=== PATIENT | female | born 1995 | race Caucasian/White ===

== ENCOUNTER 2019-03-04 22:17 | Emergency (ER) | payer MEDICAID ==
--- NOTE | 2019-03-04 22:33 | ERPHSYRPT ---
- History of Present Illness Time Seen by Provider: 03/04/19 22:20 Source: patient Exam Limitations: no limitations (23-year-old female here for a test. The patient denies any symptoms. Last menstrual period was months ago tested positive at home. Needs official diagnosis to get her insurance approved) Allergies/Adverse Reactions: No Known Drug Allergies Allergy (Unverified 03/04/19 22:42) Home Medications: No Reportable Medications [No Reported Medications] 03/04/19 [History] - Review of Systems Constitutional: No Symptoms Eyes: No Symptoms Ears, Nose, & Throat: No Symptoms Respiratory: No Symptoms Cardiac: No Symptoms Abdominal/Gastrointestinal: No Symptoms Genitourinary Symptoms: No Symptoms Musculoskeletal: No Symptoms Skin: No Symptoms Neurological: No Symptoms - Past Medical History Pertinent Past Medical History: Yes Neurological History: No Pertinent History Respiratory History: Asthma GI Medical History: No Pertinent History Psycho-Social History: Depression Female Reproductive Disorders: No Pertinent History - Past Surgical History Past Surgical History: Yes Neuro Surgical History: No Pertinent History Cardiac: No Pertinent History Other Surgical History: tonsils - Social History Smoking Status: Never smoker Exposure to second hand smoke: Yes Drug Use: none Patient Lives Alone: No - Nursing Vital Signs Nursing Vital Signs: Initial Vital Signs Temperature 98.4 F 03/04/19 22:31 Pulse Rate 84 03/04/19 22:31 Respiratory Rate 14 03/04/19 22:31 Blood Pressure 119/58 03/04/19 22:31 O2 Sat by Pulse Oximetry 98 03/04/19 22:31 Pain Scale Pain Intensity 0 - Physical Exam General Appearance: no apparent distress, obese Respiratory Exam: normal breath sounds Cardiovascular Exam: regular rate/rhythm Gastrointestinal/Abdomen Exam: soft, normal bowel sounds Neurologic Exam: alert, oriented x 3, cooperative Ordered Tests: Active Orders 24 hr Category Date Time Status HCG,QUALITATIVE URINE Stat Lab 03/04/19 22:48 Completed Lab/Rad Data: Laboratory Results 03/04/19 Range/Units 22:48 Urine HCG, Qual POSITIVE (Negative) - Progress Progress: unchanged Counseled pt/family regarding: lab results (pt has positive preg test. advised to fu with obgyn in 1 weeks time. pt voiced understanding. no smoking, alcohol. take pnv's), diagnosis - Departure Departure Disposition: Home Clinical Impression: confirmed by positive urine test Condition: Stable Critical Care Time: No
[2019-03-04 22:40] VITALS: BP 119/58; PULSE 84; O2SAT 98
== END 2019-03-04 23:15 | disposition home or self-care (01) ==
LOC: ED 22:17
DX: Z32.01 Encounter for pregnancy test, result positive (principal)
CPT/HCPCS: 84703; 99283

== ENCOUNTER 2019-04-03 22:20 | Emergency (ER) | payer MEDICAID ==
[2019-04-03] MEDS ORDERED: BENADRYL 50 MG/ML IV ONE (23:04)
[2019-04-03] MEDS ORDERED: Sodium Chloride 0.9% 1000 ML 1,000 ML IV STA (23:04)
[2019-04-03] MEDS ORDERED: TYLENOL EXTRA STRENGTH 500 MG PO STA (23:05)
--- NOTE | 2019-04-03 23:07 | ERPHSYRPT ---
- History of Present Illness Time Seen by Provider: 04/03/19 22:55 Historian: patient Exam Limitations: no limitations Patient Subjective Stated Complaint: PT STATES SHE IS 10 WEEKS ANG HAVING LOWER ABDOMINAL PAIN BILAT. PT RATES PAIN 8/10. PT STATES SHE IS NOT HAVING ANY BLEEDING, BUT STATES SHE HAS VOMITED ONCE TODAY, Triage Nursing Assessment: PT ALERT AND ORIENTED, VITALS WNL. Physician History: Patient is a at 10 weeks with a confirmed intrauterine on ultrasound who presents with one day of intermittent lower abdominal pain that began yesterday on the left side, then today began bilaterally in the lower abdomen. Patient sees Dr Anderson for her OB care. Timing/Duration: yesterday Activities at Onset: none Quality: sharpness Abdominal Pain Onset Location: RLQ, LLQ (pain began on 04/02/2019 on the left lowe quadrant; today it has been both right and left lower quadrant) Pain Radiation: no radiation Severity of Pain-Max: moderate Severity of Pain-Current: mild Modifying Factors: Improves With: nothing Associated Symptoms: nausea, vomiting (times one today), No back, No chest pain , No diaphoresis, No diarrhea, No fever/chills, No fatigue, No headache, No heartburn, No loss of appetite, No neck pain, No rash, No shortness of breath, No syncope, No weakness Previous symptoms: no prior history, no recent treatment Allergies/Adverse Reactions: No Known Drug Allergies Allergy (Verified 04/03/19 22:43) Home Medications: Vits W-Ca,Fe,FA(<1Mg) [] 1 tablet PO DAILY 04/03/19 [History] Hx Tetanus, Diphtheria Vaccination/Date Given: Yes Hx Influenza Vaccination/Date Given: No Hx Pneumococcal Vaccination/Date Given: Yes - Review of Systems Constitutional: No Fever, No Chills, No Fatigue Eyes: No Eye Pain, No Vision Changes Ears, Nose, & Throat: No Ear Pain, No Ear Discharge, No Throat Pain, No Painful Swallowing Respiratory: No Cough, No Dyspnea Cardiac: No Chest Pain, No Palpitations Abdominal/Gastrointestinal: Abdominal Pain, Nausea, Vomiting, No Diarrhea, No Constipation, No Hematemesis, No Hematochezia, No Melena Genitourinary Symptoms: , No Dysuria, No Frequency, No Hematuria, No Urgency, No Urinary Retention, No Flank Pain, No Vaginal Bleeding, No Vaginal Discharge, No Vaginal Itching Musculoskeletal: No Arthralgias, No Back Pain, No Neck Pain Skin: No Pruritis, No Rash Neurological: No Focal Weakness, No Lethargy, No Parasthesia, No Sensory Changes , No Tremors Psychological: No Anxiety, No Emotional Lability Endocrine: No Polydipsia, No Excessive Sweating Hematologic/Lymphatic: No Easy Bleeding, No Easy Bruising All Other Systems: Reviewed and Negative - Past Medical History Pertinent Past Medical History: Yes Neurological History: No Pertinent History Respiratory History: Asthma GI Medical History: No Pertinent History Psycho-Social History: Depression Female Reproductive Disorders: No Pertinent History - Past Surgical History Past Surgical History: Yes Neuro Surgical History: No Pertinent History Cardiac: No Pertinent History Other Surgical History: tonsils - Social History Smoking Status: Current some day smoker How long have you smoked: 5 YEARS Exposure to second hand smoke: No Drug Use: none Patient Lives Alone: No - Female History Hx Last Menstrual Period: JANUARY 31 Hx Now: Yes Expected Date of Delivery: 11/01/18 - Nursing Vital Signs Nursing Vital Signs: Initial Vital Signs Temperature 98.1 F 04/03/19 22:31 Pulse Rate 99 H 04/03/19 22:31 Respiratory Rate 18 04/03/19 22:31 O2 Sat by Pulse Oximetry 99 04/03/19 22:31 Pain Scale Pain Intensity 6 - Physical Exam General Appearance: no apparent distress Eye Exam: PERRL/EOMI, eyes nml inspection, No scleral icterus, No pale conjunctivae Ears, Nose, Throat Exam: normal ENT inspection, TMs normal, pharynx normal, moist mucous membranes, No TM abnormal (R), No TM abnormal (L) Neck Exam: normal inspection, non-tender, supple, full range of motion, No meningismus, No Brudzinski, No limited range of motion, No lymphadenopathy, No midline tenderness Respiratory Exam: normal breath sounds, lungs clear, airway intact, No chest tenderness, No respiratory distress, No diminished breath sounds, No accessory muscle use, No crackles/rales, No rhonchi, No wheezing, No stridor Cardiovascular Exam: regular rate/rhythm, normal heart sounds, normal peripheral pulses, capillary refill <2 sec, No murmur Gastrointestinal/Abdomen Exam: soft, normal bowel sounds, No tenderness, No distention, No mass, No guarding, No ecchymosis, No pulsatile mass, No rebound Back Exam: normal inspection, No CVA tenderness, No vertebral tenderness, No rash Extremity Exam: normal inspection, normal range of motion, pelvis stable, No calf tenderness, No petr's sign, No inflammation, No pedal edema, No swelling Neurologic Exam: alert, oriented x 3, cooperative, climatology professor II-XII nml as tested, normal mood/affect, sensation nml, No motor deficits, No motor weakness, No facial droop Skin Exam: normal color, warm, dry, No rash, No petechiae, No jaundice, No cyanosis SpO2 Interpretation: normal SpO2: 99 O2 Delivery: Room Air - Course Nursing assessment & vital signs reviewed: Yes - Radiology Ultrasound Exam OB Ultrasound: Other (Performed on 03/23/2019: Single live intrauterine ) Ordered Tests: Active Orders 24 hr Category Date Time Status Heart Tones-ED STAT Care 04/03/19 23:21 Active IV Insertion STAT Care 04/03/19 23:04 Active NPO (ED) STAT Care 04/03/19 23:04 Active AMYLASE Stat Lab 04/03/19 23:53 Completed CBC W DIFF Stat Lab 04/03/19 23:04 Completed CMP Stat Lab 04/03/19 23:53 Completed CULTURE,URINE Stat Lab 04/04/19 01:18 Received LIPASE Stat Lab 04/03/19 23:53 Completed Lactic Acid Stat Lab 04/03/19 23:55 Results UA W/RFX UR CULTURE Stat Lab 04/04/19 01:18 Completed Medication Summary Generic Name Dose Route Start Last Admin Trade Name Freq PRN Reason Stop Dose Admin Cephalexin HCl 500 mg 04/04/19 01:39 Keflex 500 Mg PO 04/04/19 01:40 STAT ONE Discontinued Medications Generic Name Dose Route Start Last Admin Trade Name Freq PRN Reason Stop Dose Admin Acetaminophen 1,000 mg 04/03/19 23:05 04/03/19 23:24 Tylenol Extra Strength 500 Mg PO 04/03/19 23:06 1,000 mg STAT STA Administration Acetaminophen Confirm 04/03/19 23:19 Tylenol Extra Strength 500 Mg Administered 04/03/19 23:20 Dose 1,000 mg .ROUTE .STK-MED ONE Diphenhydramine HCl 25 mg 04/03/19 23:04 04/03/19 23:23 Benadryl 50 Mg/Ml IV 04/03/19 23:05 25 mg STAT ONE Administration Diphenhydramine HCl Confirm 04/03/19 23:19 Benadryl 50 Mg/Ml Administered 04/03/19 23:20 Dose 50 mg .ROUTE .STK-MED ONE Sodium Chloride 1,000 mls @ 999 mls/hr 04/03/19 23:04 04/03/19 23:23 Sodium Chloride 0.9% 1000 Ml IV 04/04/19 00:04 999 mls/hr .Q1H1M STA Administration Sodium Chloride Confirm 04/03/19 23:19 Sodium Chloride 0.9% 1000 Ml Administered 04/03/19 23:20 Dose 1,000 mls @ ud .ROUTE .STK-MED ONE Potassium Chloride 40 meq 04/04/19 00:18 04/04/19 00:36 Klor Con 10 Meq PO 04/04/19 00:19 40 meq STAT ONE Administration Potassium Chloride Confirm 04/04/19 00:36 Klor Con 10 Meq Administered 04/04/19 00:37 Dose 40 meq PO .STK-MED ONE Lab/Rad Data: Laboratory Result Diagrams 04/03/19 23:04 04/03/19 23:53 Laboratory Results 04/04/19 04/03/19 04/03/19 Range/Units 01:18 23:55 23:53 WBC (4.0-10.5) K/mm3 RBC (4.1-5.4) M/mm3 Hgb (12.0-16.0) gm/dl Hct (35-47) % MCV (78-100) fl MCH (26-32) pg MCHC (32-36) g/dl RDW (11.5-14.0) % Plt Count (150-450) K/mm3 MPV (6-9.5) fl Gran % (36.0-66.0) % Eos # (Auto) (0-0.5) Absolute Lymphs (auto) (1.0-4.6) Absolute Monos (auto) (0.0-1.3) Lymphocytes % (24.0-44.0) % Monocytes % (0.0-12.0) % Eosinophils % (0.00-5.0) % Basophils % (0.0-0.4) % Absolute Granulocytes (1.4-6.9) Basophils # (0-0.4) Sodium 139 (137-145) mmol/L Potassium 3.4 L (3.5-5.1) mmol/L Chloride 105 (98-107) mmol/L Carbon Dioxide 23 (22-30) mmol/L Anion Gap 14.6 (5-15) MEQ/L BUN 11 (7-17) mg/dL Creatinine 0.49 L (0.52-1.04) mg/dL Estimated GFR > 60.0 ML/MIN Glucose 105 (74-106) mg/dL Lactic Acid 2.0 (0.4-2.0) Calcium 9.3 (8.4-10.2) mg/dL Total Bilirubin 0.30 (0.2-1.3) mg/dL AST 30 (14-36) U/L ALT 33 (0-35) U/L Alkaline Phosphatase 66 (38-126) U/L Serum Total Protein 7.1 (6.3-8.2) g/dL Albumin 3.9 (3.5-5.0) g/dL Amylase 69 (30-110) U/L Lipase 105 (23-300) U/L Urine Color YELLOW (YELLOW) Urine Appearance CLOUDY (CLEAR) Urine pH 6.0 (5-6) Ur Specific [place] 1.029 (1.005-1.025) Urine Protein 30 (Negative) Urine Ketones SMALL (NEGATIVE) Urine Blood NEGATIVE (0-5) Cong/ul Urine Nitrite NEGATIVE (NEGATIVE) Urine Bilirubin NEGATIVE (NEGATIVE) Urine Urobilinogen NEGATIVE (0-1) mg/dL Ur Leukocyte Esterase MODERATE (NEGATIVE) Urine WBC (Auto) 51-100 (0-5) /HPF Urine RBC (Auto) 6-10 (0-2) /HPF U Epithel Cells (Auto) RARE (FEW) /HPF Urine Bacteria (Auto) NONE (NEGATIVE) /HPF Urine Mucus (Auto) SLIGHT (NEGATIVE) /HPF Urine Culture Reflexed YES (NO) Urine Glucose NEGATIVE (NEGATIVE) mg/dL 04/03/19 Range/Units 23:04 WBC 14.0 H (4.0-10.5) K/mm3 RBC 4.01 L (4.1-5.4) M/mm3 Hgb 11.9 L (12.0-16.0) gm/dl Hct 36.0 (35-47) % MCV 89.8 (78-100) fl MCH 29.6 (26-32) pg MCHC 33.1 (32-36) g/dl RDW 13.9 (11.5-14.0) % Plt Count 220 (150-450) K/mm3 MPV 10.3 H (6-9.5) fl Gran % 76.3 H (36.0-66.0) % Eos # (Auto) 0.13 (0-0.5) Absolute Lymphs (auto) 2.46 (1.0-4.6) Absolute Monos (auto) 0.71 (0.0-1.3) Lymphocytes % 17.6 L (24.0-44.0) % Monocytes % 5.1 (0.0-12.0) % Eosinophils % 0.9 (0.00-5.0) % Basophils % 0.1 (0.0-0.4) % Absolute Granulocytes 10.64 H (1.4-6.9) Basophils # 0.02 (0-0.4) Sodium (137-145) mmol/L Potassium (3.5-5.1) mmol/L Chloride (98-107) mmol/L Carbon Dioxide (22-30) mmol/L Anion Gap (5-15) MEQ/L BUN (7-17) mg/dL Creatinine (0.52-1.04) mg/dL Estimated GFR ML/MIN Glucose (74-106) mg/dL Lactic Acid (0.4-2.0) Calcium (8.4-10.2) mg/dL Total Bilirubin (0.2-1.3) mg/dL AST (14-36) U/L ALT (0-35) U/L Alkaline Phosphatase (38-126) U/L Serum Total Protein (6.3-8.2) g/dL Albumin (3.5-5.0) g/dL Amylase (30-110) U/L Lipase (23-300) U/L Urine Color (YELLOW) Urine Appearance (CLEAR) Urine pH (5-6) Ur Specific [place] (1.005-1.025) Urine Protein (Negative) Urine Ketones (NEGATIVE) Urine Blood (0-5) Cong/ul Urine Nitrite (NEGATIVE) Urine Bilirubin (NEGATIVE) Urine Urobilinogen (0-1) mg/dL Ur Leukocyte Esterase (NEGATIVE) Urine WBC (Auto) (0-5) /HPF Urine RBC (Auto) (0-2) /HPF U Epithel Cells (Auto) (FEW) /HPF Urine Bacteria (Auto) (NEGATIVE) /HPF Urine Mucus (Auto) (NEGATIVE) /HPF Urine Culture Reflexed (NO) Urine Glucose (NEGATIVE) mg/dL - Progress Progress: improved Progress Note: 04/04/19 00:49 Patient denies any nausea, abdominal pain, back pain or flank pain. Repeat examination shows no tenderness to abdomen in any quadrant with no CVA tenderness bilaterally. Patient denies any headache. 04/04/19 01:40 Patient is doing better and denies any pain in her abdomen or head. Counseled pt/family regarding: lab results, diagnosis, need for follow-up - Departure Departure Disposition: Home Clinical Impression: Acute bilateral lower abdominal pain, Acute cystitis during in first trimester Abdominal pain in Qualifiers: Trimester: first trimester Qualified Code(s): O26.891 - Other specified related conditions, first trimester Condition: Good Critical Care Time: No Referrals: ZEN MORROW MD [Primary Care Provider] - 04/04/19 LADI ANDERSON [ACTIVE STAFF] - 04/04/19 Instructions: Round Ligament Pain, Stomach Pain in Early , Urinary Tract Infections in Additional Instructions: Returned immediately back to the emergency room if you have any localized abdominal pain, worsening abdominal pain, new back pain, new fever, new vaginal discharge, any vaginal bleeding, and vaginal leakage of fluids, new abdominal pain, or any other concerning signs or symptoms that were not present at the age of return visit for immediate reevaluation in the emergency department. It is important to followup with your OB in the morning of 04/04/2019. Forms: Work/School Release Form Prescriptions: Cephalexin Mh 500 mg [Keflex 500 mg] 500 mg PO TID #15 capsule
[2019-04-03] MEDS ORDERED: BENADRYL 50 MG/ML ONE (23:19)
[2019-04-03] MEDS ORDERED: Sodium Chloride 0.9% 1000 ML 1,000 ML ONE (23:19)
[2019-04-03] MEDS ORDERED: TYLENOL EXTRA STRENGTH 500 MG ONE (23:19)
[2019-04-03 23:52] LABS: Absolute Neutrophil Ct (ANC) 10.64 (1.4-6.9); BASOPHIL % 0.1 % (0.0-0.4); Basophil (Absolute #) 0.02 (0-0.4); Eosinophil % 0.9 % (0.00-5.0); Eosinophil (Absolute #) 0.13 (0-0.5); Hemoglobin 11.9 gm/dl (12.0-16.0); Lymphocyte (Absolute #) 2.46 (1.0-4.6); Lymphocytes % 17.6 % (24.0-44.0); Mean Cell Volume 89.8 fl (78-100); Mean Corpuscular Hgb Concent. 33.1 g/dl (32-36); Mean Platelet Volume 10.3 fl (6-9.5); Monocyte (Absolute #) 0.71 (0.0-1.3); Monocytes % 5.1 % (0.0-12.0); Neutrophil % 76.3 % (36.0-66.0); Platelet Count 220 K/mm3 (150-450); Red Blood Count 4.01 M/mm3 (4.1-5.4); Red Cell Distribution Width 13.9 % (11.5-14.0)
[2019-04-03 23:53] LABS: Mean Corpuscular Hemoglobin 29.6 pg (26-32)
[2019-04-04 00:05] LABS: ALBUMIN 3.9 g/dL (3.5-5.0); ALKALINE PHOSPHATASE 66 U/L (38-126); AMYLASE 69 U/L (30-110); ANION GAP 14.6 MEQ/L (5-15); BLOOD UREA NITROGEN 11 mg/dL (7-17); CHLORIDE 105 mmol/L (98-107); Calcium 9.3 mg/dL (8.4-10.2); Carbon Dioxide 23 mmol/L (22-30); Creatinine 1 0.49 mg/dL (0.52-1.04); Glucose 105 mg/dL (74-106); LIPASE 105 U/L (23-300); Potassium 3.4 mmol/L (3.5-5.1); SGOT/AST 30 U/L (14-36); SGPT/ALT 33 U/L (0-35); SODIUM 139 mmol/L (137-145); Total Protein 7.1 g/dL (6.3-8.2)
[2019-04-04] MEDS ORDERED: Klor Con 10 MEQ PO ONE ×2 (00:18→00:36)
[2019-04-04 00:55] VITALS: O2SAT 99
[2019-04-04 01:31] LABS: Appearance CLOUDY (CLEAR); Bilirubin NEGATIVE (NEGATIVE); Blood NEGATIVE Ery/ul (0-5); Epithelial Cells RARE /HPF (FEW); Glucose NEGATIVE (NEGATIVE); Ketones SMALL (NEGATIVE); Leukocyte Esterase MODERATE (NEGATIVE); Mucus SLIGHT /HPF (NEGATIVE); Nitrite NEGATIVE (NEGATIVE); Protein,Urine Dip 30 (Negative); Specific Gravity 1.029 (1.005-1.025); Urobilinogen NEGATIVE mg/dL (0-1); WBC 51-100 /HPF (0-5)
[2019-04-04] MEDS ORDERED: KEFLEX 500 MG PO ONE (01:39)
[2019-04-04] MEDS ORDERED: KEFLEX 500 MG ONE (01:58)
[2019-04-04 02:14] VITALS: BP 104/59; PULSE 91
== END 2019-04-04 02:10 | disposition home or self-care (01) ==
LOC: ED 22:20
DX: O26.892 Other specified pregnancy related conditions, second trimester (principal); R10.32 Left lower quadrant pain; R10.31 Right lower quadrant pain; O23.11 Infections of bladder in pregnancy, first trimester; N30.00 Acute cystitis without hematuria
CPT/HCPCS: 36000; 36415; 80053; 81001; 82150; 83605; 83690; 85025; 87086; 96374; 99284; J1200; A9270-GY

== ENCOUNTER 2019-10-29 12:25 | Observation (INO) | payer OTHER ==
[2019-10-29 13:51] LABS: Appearance CLOUDY (CLEAR); Bacteria MANY /HPF (NEGATIVE); Bilirubin NEGATIVE (NEGATIVE); Blood SMALL Ery/ul (0-5); Epithelial Cells MODERATE /HPF (FEW); Glucose NEGATIVE (NEGATIVE); Ketones NEGATIVE (NEGATIVE); Leukocyte Esterase LARGE (NEGATIVE); Mucus SLIGHT /HPF (NEGATIVE); Nitrite NEGATIVE (NEGATIVE); Non-Squamous Epithelial Cells RARE /HPF (FEW); Protein,Urine Dip 100 (Negative); RBC 26-50 /HPF (0-2); Specific Gravity 1.012 (1.005-1.025); Urobilinogen NEGATIVE mg/dL (0-1); WBC 51-100 /HPF (0-5)
[2019-10-29 16:45] VITALS: BP 129/76; PULSE 92; O2SAT 98
[2019-10-29 17:10] LABS: Amphetamine,Urine NEGATIVE (NEGATIVE); Barbiturate,Urine NEGATIVE (NEGATIVE); Benzodiazepine,Urine NEGATIVE (NEGATIVE); Cocaine,Urine NEGATIVE (NEGATIVE); Methadone,Urine NEGATIVE (NEGATIVE); Opiate,Urine NEGATIVE (NEGATIVE); PCP,Urine NEGATIVE (NEGATIVE); THC,Urine NEGATIVE (NEGATIVE)
== END 2019-10-29 16:30 | disposition home or self-care (01) ==
LOC: OB 12:25
PROVIDERS: ADMIT Obstetrics & Gynecology; ATTEND Obstetrics & Gynecology
DX: Z34.03 Encounter for supervision of normal first pregnancy, third trimester (principal)
CPT/HCPCS: 80307; 81001; 87086; G0378

== ENCOUNTER 2019-11-01 10:24 | Inpatient (IN) | payer OTHER ==
[2019-11-01] MEDS ORDERED: PHARMACY DOSING REQUIRED: VANCOMYCIN IV ONE (11:27)
[2019-11-01] MEDS ORDERED: VANCOCIN IV SCH (12:00)
[2019-11-01] MEDS ORDERED: SODIUM CHLORIDE 0.9% IV SCH (12:00)
[2019-11-01] MEDS: VANCOMYCIN 2 GRAM/400 ML BAG 2 GM/400 ML PIGGYBACK IV SCH ×2 (12:18→19:35)
[2019-11-01] MEDS ORDERED: XYLOCAINE 1% HCL 20 ML MDV IJ PRN (13:17)
[2019-11-01] MEDS ORDERED: PITOCIN 30 UNITS/ LR 500 ML 500 ML IV SCH (13:30)
[2019-11-01 13:44] LABS: Absolute Neutrophil Ct (ANC) 9.09 (1.4-6.9); BASOPHIL % 0.1 % (0.0-0.4); Basophil (Absolute #) 0.01 (0-0.4); Eosinophil % 0.9 % (0.00-5.0); Hematocrit 34.7 % (35-47); Hemoglobin 11.3 gm/dl (12.0-16.0); Lymphocyte (Absolute #) 1.67 (1.0-4.6); Lymphocytes % 14.5 % (24.0-44.0); Mean Cell Volume 89.4 fl (78-100); Mean Corpuscular Hemoglobin 29.1 pg (26-32); Mean Corpuscular Hgb Concent. 32.6 g/dl (32-36); Mean Platelet Volume 11.5 fl (7.5-11.0); Monocyte (Absolute #) 0.63 (0.0-1.3); Monocytes % 5.5 % (0.0-12.0); Platelet Count 204 K/mm3 (150-450); Red Blood Count 3.88 M/mm3 (4.1-5.4); Red Cell Distribution Width 13.9 % (11.5-14.0); White Blood Count 11.5 K/mm3 (4.0-10.5)
[2019-11-01] MEDS ORDERED: Lactated Ringers 1,000 ML IV ONE (15:34)
[2019-11-01] MEDS ORDERED: OB EPIDURAL NAROPIN/SUFENTANIL IN NACL EPIDURAL PRN (15:34)
[2019-11-01] MEDS ORDERED: Ephedrine Sulfate 50 MG/ML IV PRN (15:34)
[2019-11-01] MEDS: Lactated Ringers 1,000 ML IV SCH (17:23)
[2019-11-01] MEDS ORDERED: Ambien 10 MG PO PRN (23:15)
[2019-11-01] MEDS ORDERED: TYLENOL EXTRA STRENGTH 500 MG PO PRN (23:15)
[2019-11-01] MEDS ORDERED: Mylicon 80MG PO PRN (23:15)
[2019-11-01] MEDS ORDERED: LANSINOH 40 GM TOP PRN (23:15)
[2019-11-01] MEDS ORDERED: NORCO 5/325 MG PO PRN (23:15)
[2019-11-01] MEDS ORDERED: CORTISONE 1% CREAM TP PRN (23:15)
[2019-11-01] MEDS: Dermoplast Spray TP PRN (23:28)
[2019-11-01] MEDS: TUCKS TP PRN (23:28)
[2019-11-02] MEDS: MOTRIN 400 MG PO PRN ×3 (01:18→21:09)
[2019-11-02] MEDS: VANCOMYCIN 2 GRAM/400 ML BAG 2 GM/400 ML PIGGYBACK IV SCH ×3 (03:55→22:30)
[2019-11-02] MEDS: Lactated Ringers 1,000 ML IV SCH (03:55)
[2019-11-02 05:16] LABS: Absolute Neutrophil Ct (ANC) 11.18 (1.4-6.9); BASOPHIL % 0.1 % (0.0-0.4); Basophil (Absolute #) 0.02 (0-0.4); Eosinophil % 0.2 % (0.00-5.0); Eosinophil (Absolute #) 0.03 (0-0.5); Hematocrit 30.9 % (35-47); Hemoglobin 10.1 gm/dl (12.0-16.0); Lymphocyte (Absolute #) 1.92 (1.0-4.6); Lymphocytes % 13.6 % (24.0-44.0); Mean Cell Volume 89.8 fl (78-100); Mean Corpuscular Hemoglobin 29.4 pg (26-32); Mean Corpuscular Hgb Concent. 32.7 g/dl (32-36); Mean Platelet Volume 11.2 fl (7.5-11.0); Monocyte (Absolute #) 0.96 (0.0-1.3); Monocytes % 6.8 % (0.0-12.0); Neutrophil % 79.3 % (36.0-66.0); Platelet Count 199 K/mm3 (150-450); Red Blood Count 3.44 M/mm3 (4.1-5.4); Red Cell Distribution Width 13.9 % (11.5-14.0); White Blood Count 14.1 K/mm3 (4.0-10.5)
[2019-11-02] MEDS ORDERED: Adacel Vial IM ONE (09:00)
[2019-11-02] MEDS: FERREX 150 PO SCH (10:41)
[2019-11-02] MEDS: Colace 100 MG PO SCH ×2 (10:41→21:09)
[2019-11-02] MEDS ORDERED: M-M-R II Vaccine With Diluent SQ ONE (12:00)
[2019-11-02 14:59] LABS: CHLAMYDIA DNA NOT DETECTED (NEGATIVE); GC DNA Probe NOT DETECTED (NEGATIVE)
[2019-11-02] MEDS ORDERED: TROUGH DRUG LEVELS IJ ONE (19:30)
[2019-11-03] MEDS: Dermoplast Spray TP PRN (02:51)
[2019-11-03] MEDS: MOTRIN 400 MG PO PRN ×3 (02:51→23:09)
[2019-11-03] MEDS: TUCKS TP PRN (02:51)
[2019-11-03 04:51] VITALS: O2SAT 99
[2019-11-03 07:00] LABS: Creatinine 1 0.71 mg/dL (0.52-1.04)
[2019-11-03] MEDS: Colace 100 MG PO SCH ×2 (09:06→23:09)
[2019-11-03] MEDS: VANCOMYCIN 1 GRAM/200 ML BAG 1 GM/200 ML PIGGYBACK IV SCH ×3 (09:06→23:10)
[2019-11-03] MEDS: FERREX 150 PO SCH (09:06)
[2019-11-04] MEDS: VANCOMYCIN 1 GRAM/200 ML BAG 1 GM/200 ML PIGGYBACK IV SCH (07:59)
--- NOTE | 2019-11-04 08:58 | PCM.DS ---
Discharge Summary Date of Admission: 11/01/19 17:00 Admitting Physician: LADI BLACK Primary Care Provider: LADI BLACK Allergies Allergies No Known Drug Allergies Allergy (Verified 04/03/19 22:43) Hospital Summary - Hospital Course Hospital Course: 24yo had at 39 6/7wks, had second degree perineal laceration repair. has mild lochia , has been on vanc for stap in urine culture, had recent trichomonas infection, gc/ct repeated at negative. she has now decided to bottle feed which simplifies antibiotic selection for UTI - Vitals & Intake/Output Vital Signs: Vital Signs Temperature 98.7 F 11/04/19 03:00 Pulse Rate 90 11/04/19 03:00 Respiratory Rate 18 11/04/19 03:00 Blood Pressure 124/65 11/04/19 03:00 O2 Sat by Pulse Oximetry 99 11/03/19 02:00 Intake & Output: Intake & Output 11/01/19 11/02/19 11/03/19 11/04/19 11:59 11:59 11:59 11:59 Intake Total 9073 2100 2240 Output Total 150 Balance 8923 2100 2240 Weight 131.542 kg 129.274 kg - Lab Result Diagrams: 11/02/19 04:30 11/03/19 05:05 - Procedures and Test Procedures and Tests throughout Hospitalization: Therapy Orders & Screens 11/01/19 21:35 Standby STAT Comment: Discharge Exam General Appearance: no apparent distress, obese Neurologic Exam: alert, oriented x 3 Respiratory Exam: normal breath sounds, lungs clear, No respiratory distress Cardiovascular Exam: regular rate/rhythm, normal heart sounds Gastrointestinal/Abdomen Exam: soft, No tenderness, No mass Skin Exam: normal color, warm, dry Final Diagnosis/Problem List - Final Discharge Diagnosis/Problem (1) Vaginal delivery Current Visit: Yes Status: Acute Code(s): O80 - ENCOUNTER FOR FULL-TERM UNCOMPLICATED DELIVERY (2) Second degree perineal laceration during delivery Current Visit: Yes Status: Acute Code(s): O70.1 - SECOND DEGREE PERINEAL LACERATION DURING DELIVERY (3) UTI (urinary tract infection) Current Visit: Yes Status: Acute Code(s): N39.0 - URINARY TRACT INFECTION, SITE NOT SPECIFIED - Discharge Disposition: Home, Self-Care Condition: Stable Prescriptions: New Sulfamethoxazole/Trimethoprim [Bactrim Ds Tablet] 1 each PO BID #10 tablet Docusate Sodium 100 mg [Colace 100 MG] 100 mg PO BID #60 capsule Iron Polysaccharides Complex [Ferrex 150] 150 mg PO DAILY #30 capsule Discontinued Vits W-Ca,Fe,FA(<1Mg) [] 1 tablet PO DAILY Follow up with: LADI BLACK [Primary Care Provider] - 1 Week
[2019-11-04] MEDS: FERREX 150 PO SCH (09:42)
[2019-11-04] MEDS: MOTRIN 400 MG PO PRN (09:42)
[2019-11-04] MEDS: Colace 100 MG PO SCH (09:42)
[2019-11-04 11:37] VITALS: BP 123/65; PULSE 78
== END 2019-11-04 11:20 | disposition home or self-care (01) | DRG 805 ==
LOC: OB 10:24 → OBSVTOIN 17:00 → OB 17:00
PROVIDERS: ADMIT Family Medicine; ATTEND Family Medicine
PROC: 10E0XZZ Delivery of Products of Conception, External Approach (ICD-10-PCS; principal; 2019-11-01)
PROC: 0KQM0ZZ Repair Perineum Muscle, Open Approach (ICD-10-PCS; 2019-11-01)
DX: O70.1 Second degree perineal laceration during delivery (principal); O75.3 Other infection during labor; Z37.0 Single live birth; Z3A.39 39 weeks gestation of pregnancy
CPT/HCPCS: 36415; 80202; 80307; 81001; 82565; 82805; 85025; 87086; 87340; 87491; 87591; 90471; 90707; 94799; G0378; J2795; A9270-GY; J3370

== ENCOUNTER 2024-05-09 19:04 | Emergency (ER) | payer OTHER ==
[2024-05-09 19:25] LABS: HCG URINE TEST NEGATIVE (NEGATIVE)
[2024-05-09 19:27] VITALS: TEMP 98.9
[2024-05-09] MEDS ORDERED: TORAdol 30 mg Injection ONE (19:33)
[2024-05-09] MEDS: TORAdol 30 mg Injection IM ONE (19:34)
[2024-05-09 19:54] LABS: Appearance Cloudy (Clear); Bacteria Moderate /HPF (None Seen); Bilirubin Negative (Negative); Blood Negative (Negative); Epithelial Cells Moderate /HPF (None Seen); Glucose, Urine Negative (Negative); Hyaline Casts NONE SEEN /LPF (0-2); Ketones Negative (Negative); Leukocyte Esterase Moderate (Negative); Nitrite Negative (Negative); Protein,Urine Dip Negative (Negative); RBC 0-2 /HPF (0-5); Urobilinogen 0.2 mg/dL (0.2); WBC 21-50 /HPF (0-5)
[2024-05-09 20:46] VITALS: BP 108/68; PULSE 73; RESP 16; O2SAT 96
[2024-05-09] MEDS ORDERED: Macrobid 100MG Capsule ONE (21:00)
[2024-05-09] MEDS: Macrobid 100MG Capsule PO ONE (21:01)
--- NOTE | 2024-05-09 21:06 | ERPHSYRPT ---
- History of Present Illness Time Seen by Provider: 05/09/24 19:15 Source: patient Exam Limitations: no limitations Patient Subjective Stated Complaint: C/O lower back pain. Indicates she fell at home, down 5 steps, on . Did not hit her head. Pain becoming worse since that time. Triage Nursing Assessment: Patient ambulated back to ER without difficulties. She is alert and oriented. No bruising or skin alterations noted to area of reported pain. No SOB. JUNIOR WNL. Physician History: 28-year-old female presents to our ED for evaluation of low back pain. Patient reports slipping on the snow and falling down a couple steps onto her back. Injury occurred 4 days ago. Pain described as an ache that is localized no radiation. No fever no recent back procedure no lower extremity numbness tingling or weakness. No saddle anesthesia. No change in bowel bladder function. No other injuries reported. No BHT or LOC no neck pain cervical spine cleared clinically. Patient otherwise feels well. She voices no other complaints or concerns at this time. Portions of this note were created with voice recognition technology. There may be grammatical, spelling, punctuation or sound alike errors Timing/Duration: day(s) (4 days ago) Method of Injury: fall Quality: burning Back Pain Location: lumbar spine Severity of Pain-Max: moderate Severity of Pain-Current: mild Modifying Factors: Improves With: movement, other (Movement and palpation reproduces pain.) Associated Symptoms: denies symptoms Previous symptoms: no prior history Allergies/Adverse Reactions: No Known Drug Allergies Allergy (Verified 05/09/24 19:12) Home Medications: Escitalopram Oxalate [Lexapro] 10 mg PO DAILY 05/09/24 [History] Hx Tetanus, Diphtheria Vaccination/Date Given: Yes Hx Influenza Vaccination/Date Given: No Hx Pneumococcal Vaccination/Date Given: Yes Immunizations Up to Date: Yes Travel Risk - International Travel Have you traveled outside of the country in past 3 weeks: No - Emerging Infectious Disease Are you exhibiting symptoms associated with any current EIDs: No - Review of Systems Constitutional: No Symptoms, No Fever, No Chills Eyes: No Symptoms Ears, Nose, & Throat: No Symptoms Respiratory: No Symptoms, No Cough, No Dyspnea Cardiac: No Symptoms, No Chest Pain, No Edema, No Syncope Abdominal/Gastrointestinal: No Symptoms, No Abdominal Pain, No Nausea, No Vomiting, No Diarrhea Genitourinary Symptoms: No Symptoms, No Dysuria Musculoskeletal: No Symptoms, No Back Pain, No Neck Pain Skin: No Symptoms, No Rash Neurological: No Symptoms, No Dizziness, No Focal Weakness, No Sensory Changes Psychological: No Symptoms Endocrine: No Symptoms Hematologic/Lymphatic: No Symptoms Immunological/Allergic: No Symptoms All Other Systems: Reviewed and Negative - Past Medical History Pertinent Past Medical History: Yes Neurological History: No Pertinent History ENT History: No Pertinent History Cardiac History: No Pertinent History Respiratory History: Asthma Endocrine Medical History: No Pertinent History Musculoskeletal History: No Pertinent History GI Medical History: No Pertinent History History: No Pertinent History Psycho-Social History: Anxiety, Depression Female Reproductive Disorders: No Pertinent History - Past Surgical History Past Surgical History: Yes Neuro Surgical History: No Pertinent History Cardiac: No Pertinent History Respiratory: No Pertinent History Gastrointestinal: No Pertinent History Genitourinary: No Pertinent History Musculoskeletal: No Pertinent History Female Surgical History: No Pertinent History Other Surgical History: tonsils - Female History Hx Last Menstrual Period: 1 month ago Hx Now: No - Social History Smoking Status: Never smoker How long have you smoked: 5 YEARS Exposure to second hand smoke: No Drug Use: none Patient Lives Alone: No - Social Determinants of Health Will the patient participate in the screening: Declined to provide - Nursing Vital Signs Nursing Vital Signs: Initial Vital Signs Temperature 98.9 F 05/09/24 19:05 Pulse Rate 87 05/09/24 19:05 Respiratory Rate 17 05/09/24 19:05 Blood Pressure 129/80 05/09/24 19:05 O2 Sat by Pulse Oximetry 97 05/09/24 19:05 Pain Scale Pain Intensity 10 - Physical Exam General Appearance: no apparent distress, alert Eye Exam: PERRL/EOMI, eyes nml inspection Neck Exam: normal inspection, non-tender, supple, full range of motion, No meningismus, No midline tenderness Respiratory Exam: normal breath sounds, lungs clear, No respiratory distress Cardiovascular Exam: regular rate/rhythm, normal heart sounds Gastrointestinal Exam: soft, No tenderness, No mass Extremity Exam: normal inspection, normal range of motion, No calf tenderness, No pedal edema Neurologic Exam: alert, oriented x 3, cooperative, cat hooker II-XII nml as tested, normal mood/affect, nml station & gait, sensation nml, No motor deficits Skin Exam: normal color, warm, dry, No rash Lymphatic Exam: No adenopathy SpO2 Interpretation: normal SpO2: 96 O2 Delivery: Room Air - Course Nursing assessment & vital signs reviewed: Yes - CT Exams Lumbar Spine CT Interpretation: Tele-radiologist Report (Minimally displaced left L1 transverse process fracture) Ordered Tests: Active Orders 24 hr Category Date Time Status LUMBAR SPINE W/O [CT] Stat Exams 05/09/24 19:28 Taken CULTURE,URINE Stat Lab 05/09/24 19:21 Received HCG QUALITATIVE, URINE Stat Lab 05/09/24 19:22 Completed UA W/RFX UR CULTURE Stat Lab 05/09/24 19:21 Completed Medication Summary Discontinued Medications Generic Name Dose Route Start Last Admin Trade Name Freq PRN Reason Stop Dose Admin Ketorolac Tromethamine 60 mg 05/09/24 19:29 05/09/24 19:34 Ketorolac Tromethamine 30 Mg/Ml Inj IM 05/09/24 19:30 60 mg STAT ONE Administration Ketorolac Tromethamine Confirm 05/09/24 19:33 Ketorolac Tromethamine 30 Mg/Ml Inj Administered 05/09/24 19:34 Dose 60 mg .ROUTE .STK-MED ONE Nitrofurantoin Macrocrystals 100 mg 05/09/24 20:59 Nitrofurantoin Macro 100 Mg Capsule PO 05/09/24 21:00 STAT ONE Lab/Rad Data: Laboratory Results 05/09/24 05/09/24 Range/Units 19:22 19:21 Urine Color Yellow (Yellow) Urine Appearance Cloudy A (Clear) Urine pH 5.0 (4.6-8.0) Ur Specific [place] 1.020 (1.005-1.030) Urine Protein Negative (Negative) Urine Glucose (UA) Negative (Negative) mg/dL Urine Ketones Negative (Negative) Urine Blood Negative (Negative) Urine Nitrite Negative (Negative) Urine Bilirubin Negative (Negative) Urine Urobilinogen 0.2 (0.2) mg/dL Ur Leukocyte Esterase Moderate A (Negative) U Hyaline Cast (Auto) NONE SEEN (0-2) /LPF Urine Microscopic RBC 0-2 (0-5) /HPF Urine Microscopic WBC 21-50 A (0-5) /HPF Ur Epithelial Cells Moderate A (None Seen) /HPF Urine Bacteria Moderate A (None Seen) /HPF Urine Culture Reflexed YES (NO) Urine HCG, Qual NEGATIVE (NEGATIVE) - Progress Progress: improved Progress Note: 28-year-old female presents to our ED for evaluation of low back pain after a fall 4 days ago. Pain has not significantly improved. Physical exam reveals tenderness at the L-spine. Urinalysis reveals urinary tract infection. CT lumbar spine reveals a minimally displaced left transverse process fracture at L1. Patient reassessed. Pain significantly improved. However she experiences discomfort with movement. Patient advised to avoid movements she was instructed on logrolling. Patient instructed on ergonomic motion to minimize stress to her low back. Patient referred to orthopedic spine surgeon Dr. Ross Richter in [place] however she was advised that she may follow-up with any back specialist that she so desires. Patient also advised to follow-up with her primary care doctor within 48 hours for reevaluation. She agrees to do so. Patient received a dose of Macrobid in our ED. A prescription for the same forwarded to patient's pharmacy. Patient received Toradol for pain control in our ED. A prescription for the same forwarded to patient's pharmacy. Patient states he is ready for discharge. Significant other at bedside. They voiced no other complaints or concerns at this time. Portions of this note were created with voice recognition technology. There may be grammatical, spelling, punctuation or sound alike errors Complexity of problem addressed is moderate acute complicated no critical care time complex of data reviewed and analyzed is moderate. Test ordered test reviewed results analyzed and correlated clinically with history and physical exam. Risk of complication and or risk of morbidity/mortality patient management is moderate. A prescription for Toradol and Macrobid forwarded to patient's pharmacy. Vital stable. Time spent to discharge patient is approxim ately 20 minutes. Plan of care established for shared decision making. No social determinants of health present to impede follow-up. Portions of this note were created with voice recognition technology. There may be grammatical, spelling, punctuation or sound alike errors 05/09/24 21:08 Counseled pt/family regarding: lab results, diagnosis, need for follow-up, rad results - Departure Departure Disposition: Home Clinical Impression: Lumbar transverse process fracture, UTI (urinary tract infection), Fall Condition: Stable Critical Care Time: No Referrals: LADI DUNCAN [Primary Care Provider] - Follow up/PCP as directed DEVON RICHTER [NON-STAFF PHY W/O PRIVILEGES] - Follow up/PCP as directed Additional Instructions: Discharge/Care Plan MARY GRACE AGUILAR was seen on 05/09/24 in the Emergency Room. The patient was counseled regarding Diagnosis,Lab results, Imaging studies, need for follow up and when to return to the Emergency Room. Prescriptions given: Discharge Note I have spoken with the patient and/or caregivers. I have explained the patient's condition, diagnosis and treatment plan based on the information available to me at this time. I have answered the patient's and/or caregiver's questions and addressed any concerns. The patient and/or caregivers have as good understanding of the patient's diagnosis, condition and treatment plan as can be expected at this point. The vital signs have been stable. The patient's condition is stable and appropriate for discharge from the emergency department. The patient will pursue further outpatient evaluation with the primary care physician or other designated or consulting physician as outlined in the discharge instructions. The patient and/or caregivers are agreeable to this plan of care and follow-up instructions have been explained in detail. The patient and/or caregivers have received these instruction. The patient/and or caregivers are aware that any significant change in condition or worsening of symptoms should prompt an immediate return to this or the closest emergency department or call 911. Prescriptions: Nitrofurantoin Macro 100 mg [Macrobid 100MG Capsule] 100 mg PO BID 7 Days #14 cap Ketorolac Trometh 10 mg Tab [TORAdol 10 MG TABLET] 10 mg PO TID 5 Days #15 tablet
--- NOTE | 2024-05-10 08:41 | XRAY ---
Indication: Pain following fall last week. Multiple contiguous axial images obtained through the lumbar spine. Sagittal and coronal reformatted images obtained. Comparison: None Minimally displaced fracture left L1 transverse process. Incidental tiny multilevel thoracolumbar Schmorl nodes. Remaining CT lumbar spine demonstrate normal bones, articulation, and visualized noncontrasted soft tissues. Impression: Minimally displaced fracture left L1 transverse process.
== END 2024-05-09 21:11 | disposition home or self-care (01) ==
LOC: ED 19:04
DX: N39.0 Urinary tract infection, site not specified (principal); S32.019A Unspecified fracture of first lumbar vertebra, initial encounter for closed fracture; W00.0XXA Fall on same level due to ice and snow, initial encounter; Z79.899 Other long term (current) drug therapy
CPT/HCPCS: 72131; 81001; 81025; 87086; 96372; 99283; 99285; J1885; A9270-GY